=== PATIENT | male | born 1955 | race Caucasian/White ===

== ENCOUNTER 2018-12-20 05:43 | Day surgery (SDC) | payer BC ==
[~2018-12-20 05:43] MED LIST: Buffered Lidocaine 1% SYRIN* 1 ML/SYRINGE INTRADERM ONE
[2018-12-20] MEDS ORDERED: Lactated Ringers 1000 ML Bag* 1,000 ML IV SCH (06:00)
[2018-12-20] MEDS ORDERED: Famotidine IV* 10 MG/ML 2 ML (20 mg) IV ONE (06:00)
[2018-12-20] MEDS ORDERED: Dexamethasone IV* 4 MG/ML 1 ML (4 MG) IV SLOW PU ONE (06:00)
[2018-12-20] MEDS ORDERED: Levalbuterol 0.63MG/3ML NEB* UNIT OF USE INH ONE ×2 (06:02→06:26)
[2018-12-20] MEDS ORDERED: Dexamethasone IV* 4 MG/ML 1 ML (4 MG) ONE (06:25)
[2018-12-20] MEDS ORDERED: Famotidine IV* 10 MG/ML 2 ML (20 mg) ONE (06:26)
[2018-12-20] MEDS ORDERED: ceFAZolin 2 GM PREMIX in ORs 2 GM/50 ML BAG IVPB ONE (06:26)
[2018-12-20] MEDS ORDERED: fentaNYL* 50 MCG/ML 5 ML VIAL (250 MCG VIAL) ONE (07:10)
[2018-12-20] MEDS ORDERED: Midazolam* 1 MG/ML 5 ML VIAL (5 MG) ONE (07:10)
[2018-12-20] MEDS ORDERED: Atracurium* 10 MG/ML 10 ML VIAL ONE (07:10)
[2018-12-20] MEDS ORDERED: Lidocaine 2% PF * 5 ML VIAL ONE (07:12)
[2018-12-20] MEDS ORDERED: Ondansetron INJ* 2 MG/ML VIAL ONE (07:12)
[2018-12-20] MEDS ORDERED: Ketorolac INJ* 30 MG/ML 1 ML VIAL ONE (07:12)
[2018-12-20] MEDS ORDERED: Propofol* 10 MG/ML 20 ML BTL ONE (07:12)
[2018-12-20] MEDS ORDERED: Bupivacaine 0.25% EPI 200,000* 30 ML SDV ONE (07:24)
[2018-12-20] MEDS ORDERED: Rocuronium* 10 MG/ML VIAL ONE (07:27)
[2018-12-20] MEDS ORDERED: Sugammadex * 200 MG/2 ML VIAL IV PUSH ONE (07:27)
[2018-12-20] MEDS ORDERED: EPHEDrine (Pressors)* 50 MG/ML VIAL ONE (07:56)
[2018-12-20] MEDS ORDERED: Ondansetron INJ* 2 MG/ML VIAL IV PRN (08:02)
[2018-12-20] MEDS ORDERED: HYDROmorphone INJ1* 1 MG/ML SYRINGE IV PRN (08:02)
[2018-12-20] MEDS ORDERED: oxyCODONE/Acetamin 5/325 MG* TAB PO PRN (08:02)
[2018-12-20] MEDS ORDERED: fentaNYL* 50 MCG/ML 2 ML VIAL (100 MCG VIAL) IV PRN (08:02)
[2018-12-20] MEDS ORDERED: DiMENhydriNATE IV* 50 MG/ML VIAL IV PUSH PRN (08:02)
[2018-12-20] MEDS ORDERED: Naloxone* 0.4 MG/ML 1 ML VIAL IV PRN (08:02)
[2018-12-20] MEDS ORDERED: fentaNYL* 50 MCG/ML 2 ML VIAL (100 MCG VIAL) ONE (08:09)
--- NOTE | 2018-12-20 08:25 | BRIEFOPN ---
Brief Operative Note - Surgery Procedures: Procedures Pre-OP Diagnoses: Left inguinal hernia Post-op Diagnosis: same Procedure: Laparoscopic Left inguinal hernia repair with mesh Surgeon: Dorys Asst: Jacobo Aguilarthedanny: DANNY Hua EBL: minimal IVF: crystalloid Specimen: none Drains: none
[2018-12-20 10:29] VITALS: BP 127/71
--- NOTE | 2018-12-20 10:38 | OP ---
CC: Dr. Jairo De Jesus; [facility]* OPERATIVE REPORT: DATE OF OPERATION: 12/20/18 - SDS DATE OF : 57 SURGEON: Andriy Saul MD. JAZZ SINGER: Luann Centeno NP. ANESTHESIOLOGIST: Dr. Hua. ANESTHESIA: General. PRE-OP DIAGNOSIS: Left inguinal hernia. POST-OP DIAGNOSIS: Left inguinal hernia. OPERATIVE PROCEDURE: Laparoscopic left inguinal hernia repair with mesh. ESTIMATED BLOOD LOSS: Minimal. FLUIDS: Minimal crystalloid fluid given. SPECIMEN: None. DRAINS: None. DESCRIPTION OF PROCEDURE: The patient was identified in the preoperative area. He was marked, consent was signed. He was then brought to the operating room and placed on the operating table in the supine position. Preoperative antibiotics were given. Sequential devices were placed on bilateral lower extremities. General anesthesia was induced. The patient's abdomen was prepped and draped in standard surgical fashion. After the abdomen was clipped, a time- out was then performed. An infraumbilical incision was made. This was deepened down to the anterior fascia on the right. This was incised and the rectus pillar was retracted laterally opening up the preperitoneal plane. Blunt dissection was then carried out and a 12- mm trocar was inserted. Laparoscope was inserted through this and the preperitoneal plane was allowed to insufflate to a pressure of 12 mmHg. The patient tolerated the insufflation well. Two additional 5-mm trocars were placed in the lower midline. Dissection started out exposing both left and right Terrell ligament. There was no evidence of direct hernia. The epigastric vessels were maintained anteriorly and space of Bogros was opened up laterally. A large indirect sac was then reduced from the spermatic structures and fully placed posteriorly. We then next placed a Bard medium size left side mesh into the preperitoneal plane and tagged to the Terrell ligament and also laterally covering the full myopectineal orifice. The fascia at the umbilical site was closed with 0- Vicryl stitch in a [id number] fashion, and all 3 skin incisions were reapproximated in 4-0 Monocryl subcuticular sutures. [id number]/[facility] #: [id number] [facility]
== END 2018-12-20 10:28 | disposition home or self-care (01) ==
LOC: OR 05:43
PROVIDERS: ATTEND Surgery
DX: K40.90 Unilateral inguinal hernia, without obstruction or gangrene, not specified as recurrent (principal); F17.210 Nicotine dependence, cigarettes, uncomplicated
CPT/HCPCS: C1781; J0690; J1100; J1885; J2250; J2405; J2704; J3010